=== PATIENT | male | born 1975 | race Caucasian/White ===

== ENCOUNTER 2016-08-13 19:08 | Emergency (ER) | payer BC ==
[~2016-08-13] VITALS: Ht 185.4 cm; Wt 98.7 kg
[2016-08-13 19:13] VITALS: BP 143/71; PULSE 66; TEMP 36.8; O2SAT 97; Ht 185.4 cm; Wt 98.7 kg
[2016-08-13] MEDS ORDERED: AMOXICILLIN/CLAVULANATE TAB 875 MG TAB PO ONE (19:30)
[2016-08-13] MEDS ORDERED: AMOX875T PO (19:33)
--- NOTE | 2016-08-13 19:33 | EMERGENCY ROOM VISIT NOTE ---
ED Visit Note First contact with patient: 19:17 Chief Complaint: Infection in Toe History of Present Illness: Patient is a 41-year-old male who presents to the emergency Department this evening for evaluation of infection to the LEFT second toe. He reports that he noticed pain and swelling to the area over the past few days. He is uncertain if he struck the toe. He was provided a prescription for an antibiotic at an urgent care today, however the prescription was not legible by pharmacy so the patient was directed to the emergency Department for further evaluation and management. The patient reports persistent redness and swelling. He reports tenderness to touch. He denies any redness extending up into the foot or leg. He is not a diabetic. He denies any numbness or tingling into the distal extremity. He rates his current discomfort as an 8/10. He is tried nothing [id number] for symptoms. He denies any associated foot pain, ankle pain, or lower leg pain. Medications: No current medications. Allergies: No known allergies. PMH: No pertinent past medical history. SHx: Patient is a 41-year-old male who lives locally. ROS: All pertinent positive and negative review of systems are appropriately documented in the History of Present Illness. Physical Exam: VITAL SIGNS - Vital signs and nursing notes were reviewed. GENERAL - 41-year-old male appearing his stated age and in noticeable discomfort throughout the exam. MUSCULOSKELETAL -mild erythema and edema noted to the dorsal surface of the LEFT second toe just proximal to the cuticle. No purulent discharge or drainage. No open wound. No lifting streaking. Moderate tenderness to palpation appreciated to the distal surface of the toe. Active ROM of the LEFT second toe toe was limited in all directions secondary to patient discomfort. No palpable deformities. No tenderness over the MCP joint. No tenderness extending into the tarsals. NEUROLOGIC - SENSORY: Spinothalamic tract was found to be intact with ability to discriminate sharp versus dull sensation at the level of the LEFT ankle down to the tips of the toes. No sensory deficits of the dorsal column were appreciated utilizing light touch for evaluation. VASCULAR - Capillary refill was brisk. +3/5 radial pulse palpated. ED Course: Patient was seen and evaluated by myself. Patient was provided initial dose of Augmentin orally in the emergency department. He was provided a prescription for the same. He was educated on warm soaks to the area. He was instructed on the likelihood of developing early paronychia. He was educated on worrisome symptoms for return visit to the emergency department. Patient discharged home afebrile and in good condition. In the evaluation and treatment of this patient, the following differential diagnoses were considered: Fracture, gout, foreign body, amongst others. Impression: Cellulitis of LEFT 2nd Toe - Early Paronychia Discharge Instructions: You've been seen in the emergency department today for an early paronychia ( skin infection) of the toe. You were prescribed Augmentin to be taken as prescribed. This is an antibiotic. All antibiotics have the potential to cause diarrhea. Stop this medication and contact a medical provider if you were to develop any significant adverse side effects including: wheezing, shortness of breath, passing out, vomiting, or a diffuse rash. Always take antibiotics as directed and COMPLETE the ENTIRE course regardless of the improvement of your symptoms. Please perform warm soaks for comfort. For pain control, you can use the following yhab-jhj-[id number] medicines (if >12 yo): - Regular strength (325mg/tab) Tylenol (acetaminophen) 2 tabs every 4-6 hours as needed. Do not exceed 12 tablets in a 24 hour period. Avoid taking more than 4 grams (4000 mg) of Tylenol per day. This includes any other sources of acetaminophen you may take on a regular basis. - Regular strength (200 mg/tab) Advil (ibuprofen) 1-2 tabs every 4-6 hours as needed. Do not exceed a dose of 3200 mg per day. Follow-up with your primary care provider from today's visit. Return for any changing or worsening symptoms. Current/Historical Medications Scheduled Amoxicillin & Pot Clavulanate (Augmentin 875-125 mg), 875 MG PO BID Scheduled PRN Zolpidem Tartrate (Ambien), 5 MG PO HS PRN for Sleep Allergies Coded Allergies: No Known Allergies (Unverified , 08/13/16) Vital Signs Date Time Temp Pulse Resp B/P Pulse Ox O2 Delivery O2 Flow Rate FiO2 08/13/16 19:13 36.8 66 16 143/71 97 Room Air Medications Administered Medications (Trade) Dose Ordered Sig/Tamera Route Start Time Stop Time Status Last Admin Dose Admin Amoxicillin/ Clavulanate Potassium (Augmentin Tab) 875 mg ONE ONCE PO 08/13/16 19:30 08/13/16 19:31 DC 08/13/16 19:28 875 MG Departure Information Impression Primary Impression: Cellulitis of toe of left foot Additional Impression: Paronychia of second toe of left foot Dispostion Home / Self-Care Condition GOOD Prescriptions Amoxicillin & Pot Clavulanate (Augmentin 875-125 mg) 1 Tab Tab 875 MG PO BID for 10 Days, #20 TAB Prov: Arnel Jimenez PA-C 08/13/16 Referrals Dominic Pal III, M.D. (PCP) Patient Instructions ED Paronychia , My [facility] Additional Instructions You've been seen in the emergency department today for an early paronychia ( skin infection) of the toe. You were prescribed Augmentin to be taken as prescribed. This is an antibiotic. All antibiotics have the potential to cause diarrhea. Stop this medication and contact a medical provider if you were to develop any significant adverse side effects including: wheezing, shortness of breath, passing out, vomiting, or a diffuse rash. Always take antibiotics as directed and COMPLETE the ENTIRE course regardless of the improvement of your symptoms. Please perform warm soaks for comfort. For pain control, you can use the following viqz-nyr-yewraop medicines (if >12 yo): - Regular strength (325mg/tab) Tylenol (acetaminophen) 2 tabs every 4-6 hours as needed. Do not exceed 12 tablets in a 24 hour period. Avoid taking more than 4 grams (4000 mg) of Tylenol per day. This includes any other sources of acetaminophen you may take on a regular basis. - Regular strength (200 mg/tab) Advil (ibuprofen) 1-2 tabs every 4-6 hours as needed. Do not exceed a dose of 3200 mg per day. Follow-up with your primary care provider from today's visit. Return for any changing or worsening symptoms. Problem Qualifiers
[2016-08-13] MEDS ORDERED: ZOLP5TAB PO (19:40)
== END 2016-08-13 19:40 | disposition home or self-care (01) ==
LOC: C.EDB 19:09 → C.EDD 19:40
DX: L03.032 Cellulitis of left toe (principal)